=== PATIENT | male | born 1950 | race Asian ===

== ENCOUNTER 2022-04-29 09:37 | Outpatient (CLI) | payer OTHER, MEDICARE | END 2022-04-29 19:25 | disposition home or self-care (01) | LOC: SNM 09:37 | PROVIDERS: ATTEND Colon & Rectal Surgery | DX: K80.20 Calculus of gallbladder without cholecystitis without obstruction (principal) | CPT/HCPCS: 78226; 78227; A9537 ==

== ENCOUNTER 2022-05-26 17:13 | Emergency (ER) | payer OTHER, MEDICARE | END 2022-05-26 19:53 | disposition left against medical advice (07) | LOC: SED 17:13 | DX: K62.89 Other specified diseases of anus and rectum (principal); Z53.21 Procedure and treatment not carried out due to patient leaving prior to being seen by health care provider ==

== ENCOUNTER 2023-05-12 06:15 | Day surgery (SDC) | payer OTHER, MEDICARE ==
[~2023-05-12] VITALS: Ht 165.1 cm; Wt 67.1 kg
[2023-05-12] MEDS ORDERED: CEFAZOLIN SOD 2 GM in D5W 50 ML IV ONE (07:00)
[2023-05-12] MEDS ORDERED: DEXAMETHASONE SOD PHOSPHATE 4 MG/ML VIAL ONE (07:56)
[2023-05-12] MEDS ORDERED: SEVOFLURANE 15 MIN GAS INH ONE (07:56)
[2023-05-12] MEDS ORDERED: NS IRRIG SOLN 1000 ML IR ONE (07:56)
[2023-05-12] MEDS ORDERED: METOCLOPRAMIDE HCL 10 MG/2 ML VIAL ONE (07:56)
[2023-05-12] MEDS ORDERED: fentaNYL CITRATE/PF 100 MCG/2 ML AMP ONE (07:56)
[2023-05-12] MEDS ORDERED: GLYCOPYRROLATE 0.2 MG/ML VIAL ONE (07:56)
[2023-05-12] MEDS ORDERED: PROPOFOL 200MG/ 20ML VIAL (DIPRIVAN) IV ONE (07:56)
[2023-05-12] MEDS ORDERED: NS 1000 ML IV.SOLN IV ONE (07:56)
[2023-05-12] MEDS ORDERED: MIDAZOLAM HCL 5 MG/5 ML VIAL ONE (07:56)
[2023-05-12] MEDS ORDERED: ROCURONIUM BROMIDE 10 MG/ML (ZEMURON) ONE (07:56)
[2023-05-12] MEDS ORDERED: ONDANSETRON HCL 4 MG/2 ML VIAL ONE ×2 (07:56→10:24)
[2023-05-12] MEDS ORDERED: NS 100 ML BAG ONE (07:56)
[2023-05-12] MEDS ORDERED: ONDANSETRON HCL 4 MG/2 ML VIAL IVP PRN (08:45)
[2023-05-12] MEDS ORDERED: hydrALAZINE HCL 20 MG/ML VIAL IVP PRN (08:45)
[2023-05-12] MEDS ORDERED: NALOXONE HCL 0.4 MG/ML AMP (NARCAN) IVP PRN (08:45)
[2023-05-12] MEDS ORDERED: NACL 0.9% 1,000 ML IV SCH (08:45)
[2023-05-12] MEDS ORDERED: MEPERIDINE HCL/PF 25 MG/ML DISP.SYRIN IVP PRN (08:45)
[2023-05-12] MEDS ORDERED: HYDROmorphone 1 MG/ML INJ. CARTRIDGE IVP PRN (08:45)
[2023-05-12] MEDS ORDERED: HYDROcodone/ACETAMIN 5-325 MG TAB (NORCO/ VICODIN) PO PRN ×2 (09:30)
[2023-05-12] MEDS ORDERED: D5/0.45 NS 1,000 ML IV SCH (09:30)
[2023-05-12 14:12] VITALS: O2SAT 98
[2023-05-12 17:45] VITALS: BP_SYST 149; PULSE 68; RESP 17; TEMP 97.7
== END 2023-05-12 15:35 | disposition home or self-care (01) ==
LOC: SDS 06:15 → STU 06:15 → SDS 15:35
PROVIDERS: ATTEND Colon & Rectal Surgery
DX: K80.10 Calculus of gallbladder with chronic cholecystitis without obstruction (principal); I12.0 Hypertensive chronic kidney disease with stage 5 chronic kidney disease or end stage renal disease; N18.6 End stage renal disease; J45.909 Unspecified asthma, uncomplicated; I48.91 Unspecified atrial fibrillation; Z79.899 Other long term (current) drug therapy
CPT/HCPCS: 87081; 47563; 84132; 36415; 74300; 88304; J0690; J1100; J3490; J2765; J2250; J2405; J2704; J3010; Q9967; J7060; J7030; C1727; 76000